=== PATIENT | female | born 1985 | race Caucasian/White ===

== ENCOUNTER 2017-02-23 18:52 | Emergency (ER) | payer MEDICAID, OTHER ==
[~2017-02-23] VITALS: Ht 162.6 cm; Wt 55.5 kg
[~2017-02-23 18:52] MED LIST: BUTA1CAP37 PO
[2017-02-23 19:08] VITALS: Ht 162.6 cm; Wt 55.5 kg
[2017-02-23] MEDS ORDERED: ONDANSETRON 4 MG INJ IV STA (19:31)
[2017-02-23] MEDS ORDERED: morphine 4 MG/ML VIAL IV STA (19:31)
--- NOTE | 2017-02-23 19:50 | ERD ---
ER Documentation Chief Complaint Date/Time DATE: 02/23/17 TIME: 19:47 Chief Complaint abdominal pain x 2 days HPI This patient is a 31-year-old female presenting to the emergency department for right lower quadrant and right suprapubic pain which is been ongoing intimately for 2 days. Symptoms are worsening and are severe now. Associated symptoms include nausea and mild vaginal bleeding with some discharge. She feels a tight , pressure feeling to the right suprapubic area. Last bowel movement was this morning and was normal for the patient. She denies vomiting, diarrhea, back pain, fevers, dysuria, past surgical history. Last menstrual period was in July 2016 but the patient has been on and off of control. She denies other symptoms at this time. ROS All systems reviewed and are negative except as per history of present illness. Medications Home Meds Active Scripts Naproxen* (Naprosyn*) 500 Mg Tablet, 500 MG PO BID Y for PAIN AND/OR INFLAMMATION, #30 TAB Prov:FEMI AWAN PA-C 02/23/17 Cephalexin* (Keflex*) 500 Mg Capsule, 500 MG PO TID for 7 Days, #21 CAP Prov:FEMI AWAN PA-C 02/23/17 Pdlveydgjadcf-Krzvtezkcx-Ayipirvh-Codeine* (Fioricet w/Codeine*) [id number] -30MG Cap, 1 CAP PO Q6H Y for PAIN LEVEL 1-5, #20 CAP Prov:MORELIA RAMIREZ NP 04/21/15 Allergies Allergies: Coded Allergies: No Known Allergy (Unverified , 02/23/17) PMhx/Soc Medical and Surgical Hx: pt denies Surgical Hx History of Surgery: No Anesthesia Reaction: No Hx Neurological Disorder: No Hx Respiratory Disorders: No Hx Cardiac Disorders: No Hx Psychiatric Problems: No Hx Miscellaneous Medical Probl: Yes (migraines) Hx Alcohol Use: Yes (socially) Hx Substance Use: No Hx Tobacco Use: No Smoking Status: Never smoker Physical Exam Vitals Vital Signs Date Time Temp Pulse Resp B/P Pulse Ox O2 Delivery O2 Flow Rate FiO2 02/23/17 23:44 98.6 66 20 129/94 95 Room Air 02/23/17 19:08 98.6 62 20 136/91 100 Physical Exam Const: Nontoxic female in mild distress secondary to pain. Head: Atraumatic Eyes: Normal Conjunctiva ENT: Normal External Ears, Nose and Mouth. Neck: Full range of motion..~ No meningismus. Resp: Clear to auscultation bilaterally Cardio: Regular rate and rhythm, no murmurs Abd: Soft, non tender, non distended. Normal bowel sounds. There is some very mild tenderness palpation of the right lower quadrant but no rebound tenderness or guarding. There is some right-sided suprapubic tenderness to palpation. Skin: No petechiae or rashes Back: No midline or flank tenderness. No CVA tenderness. Ext: No cyanosis, or edema Neur: Awake and alert Psych: Normal Mood and Affect Result Diagram: 02/23/17201802/23/17 2019 Results 24 hrs Laboratory Tests Test 02/23/17 20:19 02/23/17 20:20 White Blood Count 8.110^3/ul Red Blood Count 4.6210^6/ul Hemoglobin 14.5g/dl Hematocrit 42.5% Mean Corpuscular Volume 92.0fl Mean Corpuscular Hemoglobin 31.4pg Mean Corpuscular Hemoglobin Concent 34.1g/dl Red Cell Distribution Width 12.3% Platelet Count 13321^3/UL Mean Platelet Volume 9.1fl Neutrophils % 79.5% Lymphocytes % 13.0% Monocytes % 7.1% Eosinophils % 0.1% Basophils % 0.1% Nucleated Red Blood Cells % 0.0/100WBC Neutrophils # 6.510^3/ul Lymphocytes # 1.110^3/ul Monocytes # 0.610^3/ul Eosinophils # 0.010^3/ul Basophils # 0.010^3/ul Nucleated Red Blood Cells # 0.010^3/ul Prothrombin Time 12.7Sec Prothrombin Time Ratio 1.0 INR International Normalized Ratio 0.95 Activated Partial Thromboplast Time 26.6Sec Sodium Level 135mmol/L Potassium Level 3.5mmol/L Chloride Level 103mmol/L Carbon Dioxide Level 25mmol/L Anion Gap 11 Blood Urea Nitrogen 12mg/dl Creatinine 0.78mg/dl Glucose Level 99mg/dl Calcium Level 8.6mg/dl Total Bilirubin 0.1mg/dl Direct Bilirubin 0.00mg/dl Indirect Bilirubin 0.1mg/dl Aspartate Amino Transf (AST/SGOT) 21IU/L Alanine Aminotransferase (ALT/SGPT) 37IU/L Alkaline Phosphatase 37IU/L Total Protein 6.1g/dl Albumin 4.1g/dl Globulin 2.00g/dl Albumin/Globulin Ratio 2.05 Lipase 48U/L Urine Color YELLOW Urine Clarity SLIGHTLY CLOUDY Urine pH 5.0 Urine Specific [place] 1.026 Urine Ketones 2+mg/dL Urine Nitrite NEGATIVEmg/dL Urine Bilirubin NEGATIVEmg/dL Urine Urobilinogen NEGATIVEmg/dL Urine Leukocyte Esterase 3+Pamela/ul Urine Microscopic RBC 36/HPF Urine Microscopic WBC 118/HPF Urine Squamous Epithelial Cells FEW/HPF Urine Bacteria FEW/HPF Urine Mucus MODERATE/HPF Urine Hemoglobin 1+mg/dL Urine Glucose NEGATIVEmg/dL Urine Total Protein NEGATIVEmg/dl Current Medications Medications (Trade) Dose Ordered Sig/Sabrina Route PRN Reason Start Time Stop Time Status Last Admin Dose Admin Morphine Sulfate (morphine) 4 mg ONCE STAT IV 02/23/17 19:31 02/23/17 19:35 DC 02/23/17 20:17 Ondansetron HCl (Zofran Inj) 4 mg ONCE STAT IV 02/23/17 19:31 02/23/17 19:35 DC 02/23/17 20:16 IV Flush 10 ml 10 ml STK-MED ONCE .ROUTE 02/23/17 20:56 02/23/17 20:57 DC 02/23/17 21:35 Sodium Chloride (NS) 100 ml @ ud STK-MED ONCE .ROUTE 02/23/17 20:56 02/23/17 20:57 DC 02/23/17 21:35 Iohexol (Omnipaque 300mg/ ml) 150 ml STK-MED ONCE .ROUTE 02/23/17 20:56 02/23/17 20:57 DC 02/23/17 21:35 [place] [id number] Radiology Main Line: [phone] DIAGNOSTIC IMAGING REPORT Patient: BERYL VILLANUEVA : 1985 Age: 31 Sex: F MR #: [id number] DOS: 02/23/17 1931 Ordering MD: FEMI AWAN PA-C Location: [facility] Room/Bed: PROCEDURE: CT scan of the abdomen and pelvis with IV contrast. CLINICAL INDICATION: Abdominal pain in a 31 year-old female. TECHNIQUE: Thin section axial, coronal and sagittal images were performed through the abdomen and pelvis following uncomplicated intravenous administration of 80 ccs of Omnipaque-300 contrast. Radiation Dose: CTDI: 6.5 and DLP: 315 One or more of the following dose reduction techniques were used: - Automated exposure control. - Adjustment of the mA and/or kV according to patient size. Use of iterative reconstruction technique. COMPARISON: No. FINDINGS: Soft tissues: There is a small midline umbilical hernia. Lungs and pleural spaces: Normal. Heart: Normal. No pericardial effusion is identified. The liver, common bile duct and gallbladder: Normal. Gastrointestinal: There is no hiatal hernia. The stomach contains some fluid and particulate matter. It is otherwise unremarkable. The small bowel loops are normal. There is a small midline umbilical hernia containing fat. There is fluid and scattered fecal material in the colon. There is no evidence of diverticulosis or diverticulitis. The vermiform appendix is not visualized. Pancreas: Normal. Kidneys, bladder and adrenal glands : The adrenal glands and kidneys are normal. The urinary bladder is normal. Spleen: Normal. Lymph nodes: No enlarged inguinal, pelvic sidewall, retroperitoneal or periportal lymph nodes are identified. There are multiple small mesenteric lymph nodes. This finding could be associated with mesenteric adenitis. Reproductive system and pelvis : The uterus is normal. No free fluid is noted in the pelvis. No abnormal adnexal mass is identified. Bony elements: There are bilateral fractures of the L5 pars interarticularis with grade 1 anterolisthesis of L5 on S1. There is vacuum disk phenomenon and disk space narrowing at L5-S1. There is 1.1 cm of ventral translation of L5 on S1. A Schmorl's node impinges on the superior plate of 212. No acute bony fracture or bone metastasis is identified. Vasculature: Normal. IMPRESSION: 1. No acute intra-abdominal process is identified. 2. There are multiple small mesenteric lymph nodes in the central abdomen and left upper abdomen. Consider mesenteric adenitis. The vermiform appendix is not visualized with there are no secondary signs of appendicitis. 3. Small midline umbilical hernia containing fat. 4. Grade 1 anterolisthesis of L5 on S1 with bilateral fractures of the L5 pars interarticularis. RPTAT:AAJJ Physician [place] Date Time Electronically viewed and signed by Frank Sykes Physician on 02/23/2017 21:58 JM/ CC: FEMI AWAN PA-C [place] [id number] Radiology Main Line: [phone] DIAGNOSTIC IMAGING REPORT Patient: BERYL VILLANUEVA : 1985 Age: 31 Sex: F MR #: [id number] DOS: 02/23/17 1931 Ordering MD: FEMI AWAN PA-C Location: [facility] Room/Bed: PROCEDURE: Pelvic ultrasound. CLINICAL INDICATION: Pelvic pain TECHNIQUE: Briseno scale, color doppler, spectral doppler ultrasound of the pelvis was performed with transabdominal transducers. COMPARISON: CT abdomen pelvis 02/23/2017 FINDINGS: Uterus: Position: Anteverted. Normal myometrial echogenicity. Normal appearance of the endometrium. Ovaries: Normal sized ovaries with preserved blood flow. No adnexal masses. Free fluid: None. Measurements: Endometrium: 0.44 cm Uterus: 6.3 x 2.8 x 3.3 cm Right ovary: 2.5 x 1.4 x 2.0 cm Left ovary: 1.7 x 1.1 x 2.3 cm IMPRESSION: Normal examination. RPTAT: AADD .Femi Gutiérrez MD, Date Time Electronically viewed and signed by .Femi Gutiérrez MD, on 02/23/2017 22:59 .B/ CC: FEMI AWAN PA-C Procedures/[facility] EMERGENCY DEPARTMENT COURSE / MEDICAL DECISION MAKING: This is a 31-year-old female who comes to the emergency room secondary to complaints of right-sided suprapubic and right lower quadrant abdominal pain. The patient was given IV morphine, IV Zofran in the department. On re-evaluation , the patient was feeling improved. Lab results reviewed. CBC: Within normal limits Chemistry: Within normal limits UA: Concerning for urinary tract infection. Lipase: Within normal limits Radiology: CT abdomen and pelvis with contrast impression: 1. No acute intra-abdominal process is identified. 2. There are multiple small mesenteric lymph nodes in the central abdomen and left upper abdomen. Consider mesenteric adenitis. The vermiform appendix is not visualized with there are no secondary signs of appendicitis. 3. Small midline umbilical hernia containing fat. 4. Grade 1 anterolisthesis of L5 on S1 with bilateral fractures of the L5 pars interarticularis. Pelvic ultrasound impression: Normal examination The primary diagnosis is abdominal pain. Secondary diagnosis is urinary tract infection I have low suspicion for ovarian torsion, ectopic , tubo-ovarian abscess, appendicitis, cholecystitis, bowel obstruction, sepsis, or other emergent conditions at this time. Discharge: I have discussed the lab results and diagnostic findings with the patient and answered any questions or concerns. The patient was discharged with a prescription for naproxen and Keflex. The patient was advised to followup with their PMD in 1-2 days and to return to the Emergency Department if there are any new or worsening symptoms. The patient understood and agreed with the diagnosis, treatment and plan. The patient is stable for discharge at this time. Departure Diagnosis: Primary Impression: Abdominal pain Additional Impression: Urinary tract infection Condition: FEMI Schwartz PA-C Feb 23, 2017 19:49
[2017-02-23 20:41] LABS: BASOPHILS % 0.1 % (0.0-2.0); EOSINOPHILS % 0.1 % (0.0-7.0); HEMATOCRIT 42.5 % (37.0-47.0); HEMOGLOBIN 14.5 g/dl (12.0-16.0); LYMPHOCYTES # 1.1 10^3/ul (0.8-2.9); MEAN CORPUSCULAR HEMOGLOBIN 31.4 pg (29.0-33.0); MEAN CORPUSCULAR HGB CONC 34.1 g/dl (32.0-37.0); MEAN PLATELET VOLUME 9.1 fl (7.4-10.4); MONOCYTE # 0.6 10^3/ul (0.3-0.9); MONOCYTES % 7.1 % (0.0-11.0); NEUTROPHIL # 6.5 10^3/ul (1.6-7.5); NEUTROPHILS % 79.5 % (39.0-77.0); PLATELET COUNT 257 10^3/UL (140-415); RED BLOOD COUNT 4.62 10^6/ul (4.20-5.40); RED CELL DISTRIBUTION WIDTH 12.3 % (11.5-14.5); WHITE BLOOD COUNT 8.1 10^3/ul (4.8-10.8)
[2017-02-23 20:42] LABS: ADD SCAN DIFF NO
[2017-02-23 20:52] LABS: ADD UMIC YES; UR ASCORBIC ACID NEGATIVE (NEGATIVE); UR BACTERIA FEW /HPF (NONE SEEN); UR BILIRUBIN (Dip) NEGATIVE (NEGATIVE); UR BLOOD (Dip) 1+ mg/dL (NEGATIVE); UR CLARITY SLIGHTLY CLOUDY (CLEAR); UR COLOR YELLOW (YELLOW); UR GLUCOSE (Dip) NEGATIVE (NEGATIVE); UR KETONES (Dip) 2+ mg/dL (NEGATIVE); UR LEUKOCYTE ESTERASE (Dip) 3+ Leu/ul (NEGATIVE); UR MUCUS MODERATE /HPF (NONE SEEN); UR NITRITE (Dip) NEGATIVE (NEGATIVE); UR RBC 36 /HPF (0-5); UR SPECIFIC GRAVITY (Dip) 1.026 (1.003-1.030); UR SQUAMOUS EPITHELIAL CELL FEW /HPF (FEW); UR TOTAL PROTEIN (Dip) NEGATIVE (NEGATIVE); UR UROBILINOGEN (Dip) NEGATIVE (NEGATIVE)
[2017-02-23] MEDS ORDERED: SOD CHLORIDE 0.9% 100 ML ONE (20:56)
[2017-02-23] MEDS ORDERED: IOHEXOL 300MG/ML 150 ML BTL ONE (20:56)
[2017-02-23 20:57] LABS: INR 0.95; PROTIME 12.7 Sec (12.2-14.2)
[2017-02-23 20:58] LABS: PARTIAL THROMBOPLASTIN TIME 26.6 Sec (25.0-35.0)
[2017-02-23 21:05] LABS: ALBUMIN 4.1 g/dl (3.3-4.9); ALBUMIN/GLOBULIN RATIO 2.05; BILIRUBIN,INDIRECT 0.1 mg/dl (0-1.1); BILIRUBIN,TOTAL 0.1 mg/dl (0.2-1.3); CALCIUM 8.6 mg/dl (8.4-10.2); CREATININE 0.78 mg/dl (0.44-1.00); POTASSIUM 3.5 mmol/L (3.5-5.1); TOTAL PROTEIN 6.1 g/dl (6.1-8.1)
--- NOTE | 2017-02-23 21:59 | RADRPT ---
PROCEDURE: CT scan of the abdomen and pelvis with IV contrast. CLINICAL INDICATION: Abdominal pain in a 31 year-old female. TECHNIQUE: Thin section axial, coronal and sagittal images were performed through the abdomen and pelvis following uncomplicated intravenous administration of 80 ccs of Omnipaque-300 contrast. Radiation Dose: CTDI: 6.5 and DLP: 315 One or more of the following dose reduction techniques were used: - Automated exposure control. - Adjustment of the mA and/or kV according to patient size. Use of iterative reconstruction technique. COMPARISON: No. FINDINGS: Soft tissues: There is a small midline umbilical hernia. Lungs and pleural spaces: Normal. Heart: Normal. No pericardial effusion is identified. The liver, common bile duct and gallbladder: Normal. Gastrointestinal: There is no hiatal hernia. The stomach contains some fluid and particulate matter . It is otherwise unremarkable. The small bowel loops are normal. There is a small midline umbili mellisa hernia containing fat. There is fluid and scattered fecal material in the colon. There is no e vidence of diverticulosis or diverticulitis. The vermiform appendix is not visualized. Pancreas: Normal. Kidneys, bladder and adrenal glands : The adrenal glands and kidneys are normal. The urinary bladde r is normal. Spleen: Normal. Lymph nodes: No enlarged inguinal, pelvic sidewall, retroperitoneal or periportal lymph nodes are id entified. There are multiple small mesenteric lymph nodes. This finding could be associated with m esenteric adenitis. Reproductive system and pelvis : The uterus is normal. No free fluid is noted in the pelvis. No ab normal adnexal mass is identified. Bony elements: There are bilateral fractures of the L5 pars interarticularis with grade 1 anterolist hesis of L5 on S1. There is vacuum disk phenomenon and disk space narrowing at L5-S1. There is 1.1 cm of ventral translation of L5 on S1. A Schmorl's node impinges on the superior plate of 212. No acute bony fracture or bone metastasis is identified. Vasculature: Normal. IMPRESSION: 1. No acute intra-abdominal process is identified. 2. There are multiple small mesenteric lymph nodes in the central abdomen and left upper abdomen. Consider mesenteric adenitis. The vermiform appendix is not visualized with there are no secondary signs of appendicitis. 3. Small midline umbilical hernia containing fat. 4. Grade 1 anterolisthesis of L5 on S1 with bilateral fractures of the L5 pars interarticularis. RPTAT:AAJJ Frank Sykes, Physician Date Time Electronically viewed and signed by Frank Sykes Physician on 02/23/2017 21:58 /
--- NOTE | 2017-02-23 22:59 | RADRPT ---
PROCEDURE: Pelvic ultrasound. CLINICAL INDICATION: Pelvic pain TECHNIQUE: Briseno scale, color doppler, spectral doppler ultrasound of the pelvis was performed with transabdominal transducers. COMPARISON: CT abdomen pelvis 02/23/2017 FINDINGS: Uterus: Position: Anteverted. Normal myometrial echogenicity. Normal appearance of the endometrium. Ovaries: Normal sized ovaries with preserved blood flow. No adnexal masses. Free fluid: None. Measurements: Endometrium: 0.44 cm Uterus: 6.3 x 2.8 x 3.3 cm Right ovary: 2.5 x 1.4 x 2.0 cm Left ovary: 1.7 x 1.1 x 2.3 cm IMPRESSION: Normal examination. RPTAT: AADD .Femi Gutiérrez MD, Date Time Electronically viewed and signed by .Femi Gutiérrez MD, on 02/23/2017 22:59 .B/
[2017-02-23] MEDS ORDERED: CEPH-443 PO (23:32)
[2017-02-23] MEDS ORDERED: NAPR-260 PO (23:32)
[2017-02-23 23:44] VITALS: BP 129/94; PULSE 66; RESP 20; TEMP 98.6
== END 2017-02-23 23:44 | disposition home or self-care (01) ==
LOC: FTE 18:52
DX: R10.31 Right lower quadrant pain (principal); N39.0 Urinary tract infection, site not specified; R10.2 Pelvic and perineal pain; R11.0 Nausea
CPT/HCPCS: 36415; 74177; 76856; 80053; 81001; 83690; 85025; 85610; 85730; 96374; 96375; J2270; J2405; Q9967; Z7502; Z7610